=== PATIENT | female | born 1985 ===

== ENCOUNTER → 2022-04-03 14:54 | Outpatient (BNVA) | payer OTHER, SELFPAY | PROVIDERS: PCP Surgery; Visit Provider Student in an Organized Health Care Education/Training Program | DX: M12.811 Other specific arthropathies, not elsewhere classified, right shoulder (principal); G89.29 Other chronic pain; M25.562 Pain in left knee; M54.50 Low back pain, unspecified; R20.0 Anesthesia of skin | CPT/HCPCS: 99202 ==